=== PATIENT | male | born 1940 | race Caucasian/White ===

== ENCOUNTER 2016-03-23 09:55 | Outpatient (CLI) | payer BC, MEDICARE ==
[2016-03-23 11:27] LABS: ALT (SGPT) 16 U/L (0-55); AST (SGOT) 22 U/L (5-34); Alkaline Phosphatase 63 U/L (40-150); Anion Gap 14 mmol/L (10-20); BUN (Urea Nitrogen) 12 mg/dL (8.4-25.7); Bilirubin, Total 0.8 mg/dL (0.2-1.2); Calc. Creatinine Clearance 0 mL/min (70-130); Calcium 9.6 mg/dL (7.8-10.44); Carbon Dioxide 24 mmol/L (23-31); Chloride 102 mmol/L (98-107); Estimated GFR-MDRD 47; Globulin 3.7 g/dL (2.4-3.5); LDL Cholesterol, Calculated 78 mg/dL; Protein, Total 7.9 g/dL (5.8-8.1)
[2016-03-23 12:13] LABS: #Basophils 0.1 thou/uL (0.0-0.2); #Eosinphils 0.2 thou/uL (0.0-0.7); #Lymphocytes 1.8 thou/uL (1.20-3.40); #Monocytes 0.7 thou/uL (0.11-0.59); %Basophils 1.2 % (0.0-1.0); %Eosinophils 3.4 % (0.0-10.0); %Monocytes 12.4 % (0.0-10.0); Hematocrit 38.5 % (42.0-52.0); Mean Platelet Volume 4.6 fL (7.4-10.4); Red Blood Cell (RBC) Count 4.03 mill/uL (4.70-6.10); White Blood Cell (WBC) Count 5.7 thou/uL (4.8-10.8)
== END 2016-03-23 09:56 | disposition home or self-care (01) ==
LOC: HPCALD 09:55
PROVIDERS: ATTEND Family Medicine
DX: E78.00 Pure hypercholesterolemia, unspecified (principal); E87.6 Hypokalemia; R97.20 Elevated prostate specific antigen [PSA]
CPT/HCPCS: 36415; 80053; 80061; 84153; 85025

== ENCOUNTER 2016-08-23 09:07 | Outpatient (CLI) | payer BC, MEDICARE ==
[2016-08-23 11:25] LABS: #Basophils 0.1 thou/uL (0.0-0.2); #Eosinphils 0.2 thou/uL (0.0-0.7); #Lymphocytes 1.6 thou/uL (1.20-3.40); #Monocytes 0.7 thou/uL (0.11-0.59); #Neutrophils 3.4 thou/uL (1.40-6.50); %Basophils 1.8 % (0.0-1.0); %Eosinophils 3.1 % (0.0-10.0); %Lymphocytes 26.7 % (21.0-51.0); %Monocytes 11.3 % (0.0-10.0); %Neutrophils 57.2 % (42.0-75.0); Hemoglobin 13.1 g/dL (14.0-18.0); Mean Corpuscular HGB CONC 34.5 g/dL (32.0-36.0); Mean Corpuscular Hemoglobin 32.7 pg (27.0-31.0); Mean Corpuscular Volume 94.9 fl (80.0-94.0); Mean Platelet Volume 4.9 fL (7.4-10.4); Platelet Count 275 thou/uL (130-400); RBC Distribution Width 11.5 % (11.5-14.5)
[2016-08-23 11:36] LABS: ALT (SGPT) 20 U/L (8-55); AST (SGOT) 26 U/L (5-34); Albumin 4.2 g/dL (3.4-4.8); Alkaline Phosphatase 65 U/L (40-150); Anion Gap 14 mmol/L (10-20); BUN (Urea Nitrogen) 15 mg/dL (8.4-25.7); Bilirubin, Total 0.7 mg/dL (0.2-1.2); Calc. Creatinine Clearance 0 mL/min (70-130); Calcium 9.3 mg/dL (7.8-10.44); Carbon Dioxide 25 mmol/L (23-31); Cardiac Risk 3.2 (Less than 4.5); Chloride 104 mmol/L (98-107); Cholesterol 160 mg/dl (< 200 Desired); Estimated GFR-MDRD 41; Globulin 3.6 g/dL (2.4-3.5); Glucose 94 mg/dL (83-110); HDL Cholesterol 50 mg/dL (>60 Neg Risk); LDL Cholesterol, Calculated 87 mg/dL; Potassium 4.2 mmol/L (3.5-5.1); Protein, Total 7.8 g/dL (5.8-8.1); Sodium 139 mmol/L (136-145); Triglycerides 117 mg/dL (Less than 150)
== END 2016-08-23 09:08 | disposition home or self-care (01) ==
LOC: HPCALD 09:07
PROVIDERS: ATTEND Family Medicine
DX: E78.5 Hyperlipidemia, unspecified (principal); I10 Essential (primary) hypertension
CPT/HCPCS: 36415; 80053; 80061; 85025

== ENCOUNTER 2016-09-13 15:38 | Outpatient (CLI) | payer BC, MEDICARE ==
[2016-09-13 20:15] LABS: Folate (Folic Acid) 17.6 ng/mL (7.0-31.4)
== END 2016-09-13 15:39 | disposition home or self-care (01) ==
LOC: HPCALD 15:38
PROVIDERS: ATTEND Family Medicine
DX: D53.9 Nutritional anemia, unspecified (principal)
CPT/HCPCS: 36415; 82607; 82746

== ENCOUNTER 2021-02-26 16:12 | Observation (INO) | payer MEDICARE, OTHER ==
[2021-02-26 17:08] LABS: #Monocytes 0.2 thou/uL (0.11-0.59); #Neutrophils 2.8 thou/uL (1.40-6.50); %Basophils 0.3 % (0.0-1.0); %Eosinophils 0.1 % (0.0-10.0); %Lymphocytes 24.3 % (21.0-51.0); %Monocytes 5.5 % (0.0-10.0); %Neutrophils 69.9 % (42.0-75.0); Hemoglobin 10.8 g/dL (14.0-18.0); Mean Corpuscular HGB CONC 32.8 g/dL (32.0-36.0); Mean Corpuscular Hemoglobin 29.2 pg (27.0-31.0); Mean Platelet Volume 6.7 fL (7.4-10.4); Platelet Count 212 thou/uL (130-400); RBC Distribution Width 12.2 % (11.5-14.5)
[2021-02-26 17:10] LABS: ALT (SGPT) 119 U/L (8-55); AST (SGOT) 213 U/L (5-34); Albumin 3.4 g/dL (3.4-4.8); Alkaline Phosphatase 76 U/L (40-110); Anion Gap 15 mmol/L (10-20); BUN (Urea Nitrogen) 27 mg/dL (8.4-25.7); Bilirubin, Total 0.4 mg/dL (0.2-1.2); Calc. Creatinine Clearance 0 mL/min (70-130); Carbon Dioxide 23 mmol/L (23-31); Chloride 101 mmol/L (98-107); Globulin 3.4 g/dL (2.4-3.5); Glucose 102 mg/dL (83-110); Potassium 3.4 mmol/L (3.5-5.1); Protein, Total 6.8 g/dL (5.8-8.1); Sodium 136 mmol/L (136-145)
[2021-02-26] MEDS ORDERED: Dexamethasone 10 MG/ML VIAL ONE (20:15)
[2021-02-26 21:14] VITALS: BMI 19.8
[2021-02-26] MEDS ORDERED: Acetaminophen 325 MG TAB PO PRN (21:30)
[2021-02-26] MEDS ORDERED: Ondansetron PF 4 MG/2 ML Vial IVP PRN (21:30)
[2021-02-26] MEDS ORDERED: Ondansetron ODT 4 MG TAB SL PRN (21:30)
[2021-02-26] MEDS: Dextrose 5 %-0.45 % NaCl 1,000 ML IV SCH (22:30)
[2021-02-27] MEDS: Dextrose 5 %-0.45 % NaCl 1,000 ML IV SCH (04:49)
[2021-02-27 05:02] LABS: Hemoglobin 9.1 g/dL (14.0-18.0); Mean Corpuscular HGB CONC 34.2 g/dL (32.0-36.0); Mean Corpuscular Hemoglobin 29.6 pg (27.0-31.0); Mean Corpuscular Volume 86.7 fL (78.0-98.0); Mean Platelet Volume 6.1 fL (7.4-10.4); Platelet Count 186 thou/uL (130-400); RBC Distribution Width 11.9 % (11.5-14.5); Red Blood Cell (RBC) Count 3.09 mill/uL (4.70-6.10); White Blood Cell (WBC) Count 2.4 thou/uL (4.8-10.8)
[2021-02-27 05:16] LABS: ALT (SGPT) 122 U/L (8-55); AST (SGOT) 222 U/L (5-34); Albumin 2.8 g/dL (3.4-4.8); Alkaline Phosphatase 75 U/L (40-110); Anion Gap 12 mmol/L (10-20); BUN (Urea Nitrogen) 23 mg/dL (8.4-25.7); Bilirubin, Total 0.3 mg/dL (0.2-1.2); Calc. Creatinine Clearance 41 mL/min (70-130); Calcium 8.2 mg/dL (7.8-10.44); Carbon Dioxide 20 mmol/L (23-31); Chloride 104 mmol/L (98-107); Globulin 2.8 g/dL (2.4-3.5); Glucose 216 mg/dL (83-110); Potassium 3.3 mmol/L (3.5-5.1); Protein, Total 5.6 g/dL (5.8-8.1); Sodium 133 mmol/L (136-145)
[2021-02-27] MEDS ORDERED: Dexamethasone 4 mg/ml Vial SLOW IVP SCH (09:00)
[2021-02-27] MEDS ORDERED: Potassium Chloride 20 MEQ TAB PO SCH (11:15)
[2021-02-27 14:05] VITALS: BP 105/62; TEMP 98.3
[2021-02-27] MEDS ORDERED: Aspirin Chewable 81 MG TAB PO SCH (21:00)
[2021-02-27] MEDS ORDERED: Atorvastatin Calcium 10 MG TAB PO SCH (21:00)
[2021-02-28] MEDS ORDERED: Dexamethasone 4 MG TAB PO SCH (08:00)
[2021-02-28] MEDS ORDERED: Potassium Chloride 20 MEQ TAB PO SCH (09:00)
[2021-02-28] MEDS ORDERED: Losartan Potassium 50 MG TAB PO SCH (09:00)
[2021-02-28] MEDS ORDERED: Hydrochlorothiazide 25 MG TAB PO SCH (09:00)
[2021-02-28] MEDS ORDERED: Atenolol 50 MG TAB PO SCH (09:00)
== END 2021-02-27 13:30 | disposition home or self-care (01) ==
LOC: BURERS 16:12 → BURMED 18:40 → BURERS 20:25
PROVIDERS: ADMIT Family Medicine; ATTEND Family Medicine
DX: E86.0 Dehydration (principal); E87.6 Hypokalemia; D72.819 Decreased white blood cell count, unspecified; R79.89 Other specified abnormal findings of blood chemistry; U07.1 COVID-19; I10 Essential (primary) hypertension; E78.5 Hyperlipidemia, unspecified; D64.9 Anemia, unspecified; R63.0 Anorexia; Z68.1 Body mass index [BMI] 19.9 or less, adult; Z79.82 Long term (current) use of aspirin; Z79.899 Other long term (current) drug therapy
CPT/HCPCS: 36415; 71045; 80053; 84484; 85025; 85027; 93005; 96374; G0378; J1100; J7042

== ENCOUNTER 2021-03-06 11:39 | Inpatient (IN) | payer MEDICARE, OTHER ==
[2021-03-06 12:29] LABS: #Basophils 0.1 thou/uL (0.0-0.2); #Eosinphils 0.1 thou/uL (0.0-0.7); #Lymphocytes 1.4 thou/uL (1.20-3.40); #Monocytes 0.4 thou/uL (0.11-0.59); #Neutrophils 14.6 thou/uL (1.40-6.50); %Basophils 0.4 % (0.0-1.0); %Eosinophils 0.5 % (0.0-10.0); %Lymphocytes 8.4 % (21.0-51.0); %Monocytes 2.2 % (0.0-10.0); %Neutrophils 88.5 % (42.0-75.0); Hemoglobin 12.3 g/dL (14.0-18.0); Mean Corpuscular HGB CONC 33.9 g/dL (32.0-36.0); Mean Corpuscular Volume 88.5 fL (78.0-98.0); Mean Platelet Volume 6.1 fL (7.4-10.4); Platelet Count 632 thou/uL (130-400); RBC Distribution Width 12.2 % (11.5-14.5); White Blood Cell (WBC) Count 16.5 thou/uL (4.8-10.8)
[2021-03-06 12:38] LABS: ALT (SGPT) 77 U/L (8-55); AST (SGOT) 32 U/L (5-34); Albumin 3.6 g/dL (3.4-4.8); Alkaline Phosphatase 77 U/L (40-110); Anion Gap 24 mmol/L (10-20); BUN (Urea Nitrogen) 31 mg/dL (8.4-25.7); Bilirubin, Total 1.5 mg/dL (0.2-1.2); Calc. Creatinine Clearance 0 mL/min (70-130); Carbon Dioxide 16 mmol/L (23-31); Chloride 101 mmol/L (98-107); Globulin 4.1 g/dL (2.4-3.5); Glucose 118 mg/dL (83-110); Potassium 4.5 mmol/L (3.5-5.1); Protein, Total 7.7 g/dL (5.8-8.1); Sodium 136 mmol/L (136-145)
[2021-03-06] MEDS ORDERED: Sodium Chloride 0.9% 100 ML ONE (12:45)
[2021-03-06] MEDS ORDERED: cefTRIAXone\\ROCEPHIN 1 GM VIAL ONE (12:45)
[2021-03-06] MEDS ORDERED: Azithromycin 500 MG VIAL ONE (13:27)
[2021-03-06 15:33] LABS: Lactic Acid 3.2 mmol/L (0.5-2.2)
[2021-03-06] MEDS ORDERED: Acetaminophen 325 MG TAB PO PRN ×2 (15:45→16:09)
[2021-03-06] MEDS ORDERED: Ondansetron PF 4 MG/2 ML Vial IVP PRN (15:45)
[2021-03-06] MEDS ORDERED: Ondansetron ODT 4 MG TAB SL PRN ×2 (15:45→16:09)
[2021-03-06] MEDS: Sodium Chloride 0.9% 1,000 ML IV SCH (16:30)
[2021-03-06] MEDS: Aspirin Chewable 81 MG TAB PO SCH (20:45)
[2021-03-06] MEDS: Atorvastatin Calcium 10 MG TAB PO SCH (20:45)
[2021-03-07] MEDS: Sodium Chloride 0.9% 1,000 ML IV SCH ×4 (00:50→20:59)
[2021-03-07 05:54] LABS: Lactic Acid 0.9 mmol/L (0.5-2.2)
[2021-03-07 05:58] LABS: Anion Gap 13 mmol/L (10-20)
[2021-03-07 06:40] LABS: ALT (SGPT) 45 U/L (8-55); AST (SGOT) 20 U/L (5-34); Albumin 2.4 g/dL (3.4-4.8); Alkaline Phosphatase 60 U/L (40-110); BUN (Urea Nitrogen) 33 mg/dL (8.4-25.7); Bilirubin, Total 0.8 mg/dL (0.2-1.2); Calc. Creatinine Clearance 36 mL/min (70-130); Carbon Dioxide 17 mmol/L (23-31); Chloride 112 mmol/L (98-107); Globulin 2.6 g/dL (2.4-3.5); Glucose 73 mg/dL (83-110); Potassium 3.8 mmol/L (3.5-5.1); Sodium 138 mmol/L (136-145)
[2021-03-07 06:42] LABS: #Basophils 0.1 thou/uL (0.0-0.2); #Eosinphils 0.1 thou/uL (0.0-0.7); #Lymphocytes 0.7 thou/uL (1.20-3.40); #Monocytes 1.1 thou/uL (0.11-0.59); #Neutrophils 8.2 thou/uL (1.40-6.50); %Basophils 1.1 % (0.0-1.0); %Eosinophils 0.6 % (0.0-10.0); %Lymphocytes 6.8 % (21.0-51.0); %Monocytes 10.6 % (0.0-10.0); %Neutrophils 80.8 % (42.0-75.0); Hemoglobin 8.8 g/dL (14.0-18.0); Mean Corpuscular HGB CONC 34.1 g/dL (32.0-36.0); Mean Corpuscular Hemoglobin 30.1 pg (27.0-31.0); Mean Corpuscular Volume 88.2 fL (78.0-98.0); Mean Platelet Volume 5.8 fL (7.4-10.4); Platelet Count 380 thou/uL (130-400); RBC Distribution Width 12.1 % (11.5-14.5); Red Blood Cell (RBC) Count 2.91 mill/uL (4.70-6.10); White Blood Cell (WBC) Count 10.1 thou/uL (4.8-10.8)
[2021-03-07] MEDS ORDERED: Dexamethasone 4 MG TAB PO SCH (08:00)
[2021-03-07] MEDS: Megestrol Acetate 40 MG TAB PO SCH ×2 (09:20→20:50)
[2021-03-07] MEDS: Atenolol 50 MG TAB PO SCH (09:21)
[2021-03-07] MEDS: Losartan Potassium 50 MG TAB PO SCH (09:21)
[2021-03-07] MEDS: Potassium Chloride 20 MEQ TAB PO SCH (09:21)
[2021-03-07] MEDS: cefTRIAXone\\ROCEPHIN 1 GM in Sodium Chloride 0.9% 100 ML IVPB SCH (12:58)
[2021-03-07] MEDS: Atorvastatin Calcium 10 MG TAB PO SCH (20:50)
[2021-03-07] MEDS: Aspirin Chewable 81 MG TAB PO SCH (20:50)
[2021-03-08 03:00] VITALS: BMI 19.0
[2021-03-08 05:15] LABS: #Eosinphils 0.1 thou/uL (0.0-0.7); #Lymphocytes 0.6 thou/uL (1.20-3.40); #Monocytes 0.7 thou/uL (0.11-0.59); #Neutrophils 5.6 thou/uL (1.40-6.50); %Basophils 0.6 % (0.0-1.0); %Eosinophils 1.1 % (0.0-10.0); %Lymphocytes 9.1 % (21.0-51.0); %Monocytes 10.4 % (0.0-10.0); %Neutrophils 78.8 % (42.0-75.0); Hemoglobin 7.6 g/dL (14.0-18.0); Mean Corpuscular Hemoglobin 29.8 pg (27.0-31.0); Mean Corpuscular Volume 87.6 fL (78.0-98.0); Platelet Count 355 thou/uL (130-400); RBC Distribution Width 12.2 % (11.5-14.5); Red Blood Cell (RBC) Count 2.56 mill/uL (4.70-6.10); White Blood Cell (WBC) Count 7.1 thou/uL (4.8-10.8)
[2021-03-08 05:25] LABS: ALT (SGPT) 35 U/L (8-55); AST (SGOT) 19 U/L (5-34); Albumin 2.2 g/dL (3.4-4.8); Alkaline Phosphatase 49 U/L (40-110); Anion Gap 9 mmol/L (10-20); BUN (Urea Nitrogen) 23 mg/dL (8.4-25.7); Bilirubin, Total 0.8 mg/dL (0.2-1.2); Calc. Creatinine Clearance 49 mL/min (70-130); Calcium 7.9 mg/dL (7.8-10.44); Carbon Dioxide 16 mmol/L (23-31); Chloride 114 mmol/L (98-107); Globulin 2.4 g/dL (2.4-3.5); Glucose 85 mg/dL (83-110); Potassium 3.4 mmol/L (3.5-5.1); Protein, Total 4.6 g/dL (5.8-8.1); Sodium 136 mmol/L (136-145)
[2021-03-08] MEDS: Losartan Potassium 50 MG TAB PO SCH (09:01)
[2021-03-08] MEDS: Ferrous Gluconate 324 MG TAB PO SCH (09:01)
[2021-03-08] MEDS: Potassium Chloride 20 MEQ TAB PO SCH (09:02)
[2021-03-08] MEDS: Atenolol 50 MG TAB PO SCH (09:02)
[2021-03-08] MEDS: Megestrol Acetate 40 MG TAB PO SCH ×2 (09:02→20:52)
[2021-03-08] MEDS: cefTRIAXone\\ROCEPHIN 1 GM in Sodium Chloride 0.9% 100 ML IVPB SCH (13:07)
[2021-03-08] MEDS: Atorvastatin Calcium 10 MG TAB PO SCH (20:52)
[2021-03-08] MEDS: Aspirin Chewable 81 MG TAB PO SCH (20:52)
[2021-03-09 05:26] LABS: #Eosinphils 0.1 thou/uL (0.0-0.7); #Lymphocytes 0.7 thou/uL (1.20-3.40); #Monocytes 0.6 thou/uL (0.11-0.59); #Neutrophils 6.7 thou/uL (1.40-6.50); %Basophils 0.4 % (0.0-1.0); %Lymphocytes 8.8 % (21.0-51.0); %Monocytes 7.2 % (0.0-10.0); %Neutrophils 82.7 % (42.0-75.0); Hemoglobin 8.3 g/dL (14.0-18.0); Mean Corpuscular HGB CONC 34.1 g/dL (32.0-36.0); Mean Corpuscular Hemoglobin 29.5 pg (27.0-31.0); Mean Corpuscular Volume 86.5 fL (78.0-98.0); Mean Platelet Volume 5.7 fL (7.4-10.4); Platelet Count 386 thou/uL (130-400); RBC Distribution Width 11.8 % (11.5-14.5); Red Blood Cell (RBC) Count 2.81 mill/uL (4.70-6.10)
[2021-03-09 05:39] LABS: Anion Gap 13 mmol/L (10-20); BUN (Urea Nitrogen) 17 mg/dL (8.4-25.7); Calc. Creatinine Clearance 55 mL/min (70-130); Calcium 8.7 mg/dL (7.8-10.44); Carbon Dioxide 15 mmol/L (23-31); Chloride 110 mmol/L (98-107); Glucose 79 mg/dL (83-110); Potassium 3.4 mmol/L (3.5-5.1); Sodium 135 mmol/L (136-145)
[2021-03-09] MEDS: Megestrol Acetate 40 MG TAB PO SCH (09:32)
[2021-03-09] MEDS: Atenolol 50 MG TAB PO SCH (09:32)
[2021-03-09] MEDS: Losartan Potassium 50 MG TAB PO SCH (09:32)
[2021-03-09] MEDS: Potassium Chloride 20 MEQ TAB PO SCH (09:32)
[2021-03-09] MEDS: Ferrous Gluconate 324 MG TAB PO SCH (09:32)
[2021-03-09] MEDS: cefTRIAXone\\ROCEPHIN 1 GM in Sodium Chloride 0.9% 100 ML IVPB SCH (14:07)
[2021-03-09] MEDS ORDERED: FLU VACC QS2021-22(65YR UP)/PF 240 MCG/0.7 ML SYRINGE IM ONE (16:00)
[2021-03-09 19:05] VITALS: BP 138/77; TEMP 99.9
== END 2021-03-09 19:19 | disposition swing bed (61) | DRG 641 ==
LOC: BURERS 11:39 → BURMED 13:50
PROVIDERS: ADMIT Family Medicine; ATTEND Family Medicine
DX: E86.0 Dehydration (principal); Z68.1 Body mass index [BMI] 19.9 or less, adult; E44.0 Moderate protein-calorie malnutrition; I10 Essential (primary) hypertension; E87.2 Acidosis; E78.5 Hyperlipidemia, unspecified; R68.0 Hypothermia, not associated with low environmental temperature; U09.9 Post COVID-19 condition, unspecified; N28.9 Disorder of kidney and ureter, unspecified
CPT/HCPCS: 36415; 71045; 80048; 80053; 83605; 85025; 86140; 93005; 96365; 96367; J0456; J0696; J3490; J7050; S0179

== ENCOUNTER 2021-03-09 19:00 | Inpatient (IN) | payer MEDICARE, OTHER ==
[2021-03-09] MEDS ORDERED: Ondansetron PF 4 MG/2 ML Vial IVP PRN (19:48)
[2021-03-09] MEDS ORDERED: Ondansetron ODT 4 MG TAB SL PRN (19:50)
[2021-03-09 20:14] VITALS: BMI 19.0
[2021-03-09] MEDS: Atorvastatin Calcium 10 MG TAB PO SCH (21:31)
[2021-03-09] MEDS: Megestrol Acetate 40 MG TAB PO SCH (21:31)
[2021-03-09] MEDS: Aspirin Chewable 81 MG TAB PO SCH (21:31)
[2021-03-10] MEDS ORDERED: Potassium Chloride 20 MEQ TAB PO SCH (09:00)
[2021-03-10] MEDS: Atenolol 50 MG TAB PO SCH (10:46)
[2021-03-10] MEDS: Losartan Potassium 50 MG TAB PO SCH (10:46)
[2021-03-10] MEDS: Megestrol Acetate 40 MG TAB PO SCH ×2 (10:47→21:08)
[2021-03-10] MEDS ORDERED: Ferrous Gluconate 324 MG TAB ONE (10:51)
[2021-03-10] MEDS: Ferrous Gluconate 324 MG TAB PO SCH (10:55)
[2021-03-10 12:25] LABS: #Basophils 0.1 thou/uL (0.0-0.2); #Lymphocytes 0.9 thou/uL (1.20-3.40); #Neutrophils 14.1 thou/uL (1.40-6.50); %Basophils 0.4 % (0.0-1.0); %Eosinophils 0.1 % (0.0-10.0); %Lymphocytes 5.3 % (21.0-51.0); %Monocytes 6.1 % (0.0-10.0); %Neutrophils 88.2 % (42.0-75.0); Hemoglobin 9.8 g/dL (14.0-18.0); Mean Corpuscular HGB CONC 35.4 g/dL (32.0-36.0); Mean Corpuscular Hemoglobin 31.4 pg (27.0-31.0); Mean Corpuscular Volume 88.6 fL (78.0-98.0); Mean Platelet Volume 5.5 fL (7.4-10.4); Platelet Count 506 thou/uL (130-400); Red Blood Cell (RBC) Count 3.13 mill/uL (4.70-6.10)
[2021-03-10 13:01] LABS: ALT (SGPT) 36 U/L (8-55); AST (SGOT) 29 U/L (5-34); Albumin 2.8 g/dL (3.4-4.8); Alkaline Phosphatase 68 U/L (40-110); Anion Gap 13 mmol/L (10-20); BUN (Urea Nitrogen) 16 mg/dL (8.4-25.7); Bilirubin, Total 1.3 mg/dL (0.2-1.2); Calc. Creatinine Clearance 47 mL/min (70-130); Calcium 9.8 mg/dL (7.8-10.44); Chloride 107 mmol/L (98-107); Globulin 3.5 g/dL (2.4-3.5); Glucose 129 mg/dL (83-110); Potassium 3.6 mmol/L (3.5-5.1); Protein, Total 6.3 g/dL (5.8-8.1); Sodium 135 mmol/L (136-145)
[2021-03-10 13:12] LABS: Carbon Dioxide 16 mmol/L (23-31)
[2021-03-10] MEDS: cefTRIAXone\\ROCEPHIN 1 GM in Sodium Chloride 0.9% 100 ML IVPB SCH (13:30)
[2021-03-10] MEDS: Sodium Chloride 0.9% 1,000 ML IV SCH (14:49)
[2021-03-10 20:54] LABS: Bilirubin Negative (Negative); Blood, Urine Negative (Negative); Clarity Clear (Clear); Glucose, Urine (Dipstick) Negative (Negative); Ketone, Urine 15 mg/dL (Negative); Leukocyte Negative (Negative); Nitrite Negative (Negative); Protein, Urine (Dipstick) 30 mg/dL (Neg-Trace); pH, Urine 5.5 (5.0-9.0)
[2021-03-10 20:59] LABS: Urine Culture Reflex No No
[2021-03-10] MEDS: Atorvastatin Calcium 10 MG TAB PO SCH (21:08)
[2021-03-10] MEDS: Aspirin Chewable 81 MG TAB PO SCH (21:08)
[2021-03-10 21:24] LABS: RBC/HPF 0-3 HPF (0-3); Squamous Epithelial 0-3 HPF (0-3); WBC/HPF None Seen HPF (0-3); Yeast-Budding Rare HPF (None Seen)
[2021-03-11] MEDS: Sodium Chloride 0.9% 1,000 ML IV SCH ×2 (04:57→20:59)
[2021-03-11 06:05] LABS: #Eosinphils 0.1 thou/uL (0.0-0.7); #Lymphocytes 0.5 thou/uL (1.20-3.40); #Monocytes 0.7 thou/uL (0.11-0.59); %Basophils 0.3 % (0.0-1.0); %Eosinophils 0.6 % (0.0-10.0); %Lymphocytes 4.9 % (21.0-51.0); %Monocytes 6.6 % (0.0-10.0); %Neutrophils 87.6 % (42.0-75.0); Hemoglobin 7.9 g/dL (14.0-18.0); Mean Corpuscular HGB CONC 33.9 g/dL (32.0-36.0); Mean Corpuscular Hemoglobin 29.3 pg (27.0-31.0); Mean Corpuscular Volume 86.4 fL (78.0-98.0); Mean Platelet Volume 5.3 fL (7.4-10.4); Platelet Count 357 thou/uL (130-400); Red Blood Cell (RBC) Count 2.69 mill/uL (4.70-6.10); White Blood Cell (WBC) Count 10.3 thou/uL (4.8-10.8)
[2021-03-11 06:14] LABS: ALT (SGPT) 24 U/L (8-55); AST (SGOT) 25 U/L (5-34); Albumin 2.3 g/dL (3.4-4.8); Alkaline Phosphatase 54 U/L (40-110); Anion Gap 13 mmol/L (10-20); BUN (Urea Nitrogen) 17 mg/dL (8.4-25.7); Bilirubin, Total 0.9 mg/dL (0.2-1.2); Calc. Creatinine Clearance 57 mL/min (70-130); Calcium 9.3 mg/dL (7.8-10.44); Carbon Dioxide 16 mmol/L (23-31); Chloride 110 mmol/L (98-107); Globulin 2.8 g/dL (2.4-3.5); Glucose 102 mg/dL (83-110); Potassium 3.3 mmol/L (3.5-5.1); Protein, Total 5.1 g/dL (5.8-8.1); Sodium 136 mmol/L (136-145)
[2021-03-11] MEDS: Potassium Chloride 20 MEQ TAB PO SCH (09:51)
[2021-03-11] MEDS: Atenolol 50 MG TAB PO SCH (09:51)
[2021-03-11] MEDS: Losartan Potassium 50 MG TAB PO SCH (09:51)
[2021-03-11] MEDS: Megestrol Acetate 40 MG TAB PO SCH ×2 (09:51→20:58)
[2021-03-11] MEDS: Ferrous Gluconate 324 MG TAB PO SCH (09:52)
[2021-03-11] MEDS: Docusate 100 MG CAP PO SCH (09:52)
[2021-03-11] MEDS: cefTRIAXone\\ROCEPHIN 1 GM in Sodium Chloride 0.9% 100 ML IVPB SCH (13:06)
[2021-03-11] MEDS: Atorvastatin Calcium 10 MG TAB PO SCH (20:58)
[2021-03-11] MEDS: Aspirin Chewable 81 MG TAB PO SCH (20:58)
[2021-03-12 06:17] LABS: Anion Gap 12 mmol/L (10-20); BUN (Urea Nitrogen) 18 mg/dL (8.4-25.7); Calc. Creatinine Clearance 55 mL/min (70-130); Calcium 9.1 mg/dL (7.8-10.44); Carbon Dioxide 17 mmol/L (23-31); Chloride 113 mmol/L (98-107); Glucose 91 mg/dL (83-110); Potassium 3.8 mmol/L (3.5-5.1); Sodium 138 mmol/L (136-145)
[2021-03-12 06:19] LABS: #Eosinphils 0.1 thou/uL (0.0-0.7); Hemoglobin 7.4 g/dL (14.0-18.0); Platelet Count 338 thou/uL (130-400)
[2021-03-12 07:39] LABS: Red Blood Cell (RBC) Count 2.52 mill/uL (4.70-6.10); White Blood Cell (WBC) Count 9.3 thou/uL (4.8-10.8)
[2021-03-12 07:41] LABS: Mean Corpuscular Volume 87.6 fL (78.0-98.0)
[2021-03-12 07:43] LABS: Mean Corpuscular Hemoglobin 29.3 pg (27.0-31.0)
[2021-03-12 07:49] LABS: Mean Corpuscular HGB CONC 33.5 g/dL (32.0-36.0); Mean Platelet Volume 5.1 fL (7.4-10.4); RBC Distribution Width 12.4 % (11.5-14.5)
[2021-03-12] MEDS: Sodium Chloride 0.9% 1,000 ML IV SCH (07:49)
[2021-03-12 07:50] LABS: %Lymphocytes 9.1 % (21.0-51.0); %Neutrophils 84.7 % (42.0-75.0)
[2021-03-12 07:51] LABS: #Neutrophils 7.9 thou/uL (1.40-6.50); %Eosinophils 1.2 % (0.0-10.0); %Monocytes 4.3 % (0.0-10.0)
[2021-03-12 07:52] LABS: #Lymphocytes 0.8 thou/uL (1.20-3.40)
[2021-03-12 07:53] LABS: #Basophils 0.1 thou/uL (0.0-0.2); #Monocytes 0.4 thou/uL (0.11-0.59)
[2021-03-12 07:54] LABS: %Basophils 0.7 % (0.0-1.0)
[2021-03-12] MEDS ORDERED: FLU VACC QS2021-22(65YR UP)/PF 240 MCG/0.7 ML SYRINGE IM ONE (09:00)
[2021-03-12] MEDS: Ferrous Gluconate 324 MG TAB PO SCH (10:17)
[2021-03-12] MEDS: Atenolol 50 MG TAB PO SCH (10:17)
[2021-03-12] MEDS: Megestrol Acetate 40 MG TAB PO SCH ×2 (10:19→22:00)
[2021-03-12] MEDS: Potassium Chloride 20 MEQ TAB PO SCH (10:19)
[2021-03-12] MEDS: Docusate 100 MG CAP PO SCH (10:19)
[2021-03-12] MEDS: Losartan Potassium 50 MG TAB PO SCH (10:19)
[2021-03-12] MEDS: cefTRIAXone\\ROCEPHIN 1 GM in Sodium Chloride 0.9% 100 ML IVPB SCH (13:55)
[2021-03-12] MEDS: Atorvastatin Calcium 10 MG TAB PO SCH (22:00)
[2021-03-12] MEDS: Aspirin Chewable 81 MG TAB PO SCH (22:00)
[2021-03-13] MEDS: Atenolol 50 MG TAB PO SCH (10:01)
[2021-03-13] MEDS: Ferrous Gluconate 324 MG TAB PO SCH (10:02)
[2021-03-13] MEDS: Docusate 100 MG CAP PO SCH (10:02)
[2021-03-13] MEDS: Potassium Chloride 20 MEQ TAB PO SCH (10:02)
[2021-03-13] MEDS: Losartan Potassium 50 MG TAB PO SCH (10:02)
[2021-03-13] MEDS: Megestrol Acetate 40 MG TAB PO SCH ×2 (10:05→21:06)
[2021-03-13] MEDS: cefTRIAXone\\ROCEPHIN 1 GM in Sodium Chloride 0.9% 100 ML IVPB SCH (14:37)
[2021-03-13] MEDS: Aspirin Chewable 81 MG TAB PO SCH (21:06)
[2021-03-13] MEDS: Atorvastatin Calcium 10 MG TAB PO SCH (21:06)
[2021-03-14] MEDS: Megestrol Acetate 40 MG TAB PO SCH ×2 (09:29→21:15)
[2021-03-14] MEDS: Docusate 100 MG CAP PO SCH (09:30)
[2021-03-14] MEDS: Atenolol 50 MG TAB PO SCH (09:30)
[2021-03-14] MEDS: Ferrous Gluconate 324 MG TAB PO SCH (09:30)
[2021-03-14] MEDS: Losartan Potassium 50 MG TAB PO SCH (09:31)
[2021-03-14] MEDS: Potassium Chloride 20 MEQ TAB PO SCH (09:31)
[2021-03-14] MEDS: cefTRIAXone\\ROCEPHIN 1 GM in Sodium Chloride 0.9% 100 ML IVPB SCH (12:55)
[2021-03-14] MEDS: Aspirin Chewable 81 MG TAB PO SCH (21:15)
[2021-03-14] MEDS: Atorvastatin Calcium 10 MG TAB PO SCH (21:15)
[2021-03-15 05:29] LABS: #Basophils 0.1 thou/uL (0.0-0.2); #Eosinphils 0.1 thou/uL (0.0-0.7); #Lymphocytes 0.5 thou/uL (1.20-3.40); #Monocytes 0.4 thou/uL (0.11-0.59); #Neutrophils 6.9 thou/uL (1.40-6.50); %Basophils 0.9 % (0.0-1.0); %Lymphocytes 6.8 % (21.0-51.0); %Monocytes 5.1 % (0.0-10.0); %Neutrophils 86.2 % (42.0-75.0); Hemoglobin 7.8 g/dL (14.0-18.0); Mean Corpuscular HGB CONC 35.7 g/dL (32.0-36.0); Mean Corpuscular Hemoglobin 31.2 pg (27.0-31.0); Mean Corpuscular Volume 87.6 fL (78.0-98.0); Mean Platelet Volume 5.8 fL (7.4-10.4); Platelet Count 227 thou/uL (130-400); RBC Distribution Width 13.7 % (11.5-14.5)
[2021-03-15 05:39] LABS: Anion Gap 13 mmol/L (10-20); BUN (Urea Nitrogen) 20 mg/dL (8.4-25.7); Calc. Creatinine Clearance 54 mL/min (70-130); Calcium 9.6 mg/dL (7.8-10.44); Carbon Dioxide 19 mmol/L (23-31); Chloride 110 mmol/L (98-107); Glucose 105 mg/dL (83-110); Potassium 3.5 mmol/L (3.5-5.1); Sodium 138 mmol/L (136-145)
[2021-03-15] MEDS: Megestrol Acetate 40 MG TAB PO SCH ×2 (08:25→21:06)
[2021-03-15] MEDS: Ferrous Gluconate 324 MG TAB PO SCH (08:25)
[2021-03-15] MEDS: Losartan Potassium 50 MG TAB PO SCH (08:26)
[2021-03-15] MEDS: Atenolol 50 MG TAB PO SCH (08:26)
[2021-03-15] MEDS: Docusate 100 MG CAP PO SCH (08:26)
[2021-03-15] MEDS: Potassium Chloride 20 MEQ TAB PO SCH (08:26)
[2021-03-15] MEDS: Acetaminophen 325 MG TAB PO PRN (08:28)
[2021-03-15] MEDS: Nystatin 500,000 UNITS/5 ML UDCUP SSW SCH ×4 (08:37→21:05)
[2021-03-15] MEDS ORDERED: predniSONE 20 MG TAB PO SCH (12:00)
[2021-03-15] MEDS: cefTRIAXone\\ROCEPHIN 1 GM in Sodium Chloride 0.9% 100 ML IVPB SCH (12:43)
[2021-03-15] MEDS ORDERED: Hydrocortisone Acetate 25 MG Suppository PR PRN (15:43)
[2021-03-15] MEDS: Mometasone/Formoterol 200/5 60 PUFF INH SCH (17:59)
[2021-03-15] MEDS: Atorvastatin Calcium 10 MG TAB PO SCH (21:06)
[2021-03-15] MEDS: Aspirin Chewable 81 MG TAB PO SCH (21:06)
[2021-03-16] MEDS: Mometasone/Formoterol 200/5 60 PUFF INH SCH ×2 (05:28→21:10)
[2021-03-16] MEDS: Enoxaparin Sodium 30 MG/0.3 ML SYRINGE SC SCH (09:04)
[2021-03-16] MEDS: Dexamethasone 4 MG TAB PO SCH (09:05)
[2021-03-16] MEDS: Potassium Chloride 20 MEQ TAB PO SCH (09:05)
[2021-03-16] MEDS: Losartan Potassium 50 MG TAB PO SCH (09:05)
[2021-03-16] MEDS: Ferrous Gluconate 324 MG TAB PO SCH (09:08)
[2021-03-16] MEDS: Megestrol Acetate 40 MG TAB PO SCH ×2 (09:08→21:09)
[2021-03-16] MEDS: Atenolol 50 MG TAB PO SCH ×2 (09:09→11:04)
[2021-03-16] MEDS: Docusate 100 MG CAP PO SCH (09:09)
[2021-03-16] MEDS: Nystatin 500,000 UNITS/5 ML UDCUP SSW SCH ×4 (09:09→21:09)
[2021-03-16] MEDS: Acetaminophen 325 MG TAB PO PRN (09:10)
[2021-03-16] MEDS ORDERED: predniSONE 20 MG TAB PO SCH (12:00)
[2021-03-16] MEDS: cefTRIAXone\\ROCEPHIN 1 GM in Sodium Chloride 0.9% 100 ML IVPB SCH (12:57)
[2021-03-16] MEDS: Aspirin Chewable 81 MG TAB PO SCH (21:09)
[2021-03-16] MEDS: Atorvastatin Calcium 10 MG TAB PO SCH (21:09)
[2021-03-17 05:34] LABS: ALT (SGPT) 43 U/L (8-55); AST (SGOT) 67 U/L (5-34); Albumin 2.1 g/dL (3.4-4.8); Alkaline Phosphatase 60 U/L (40-110); Anion Gap 12 mmol/L (10-20); BUN (Urea Nitrogen) 22 mg/dL (8.4-25.7); Bilirubin, Total 0.3 mg/dL (0.2-1.2); Calc. Creatinine Clearance 53 mL/min (70-130); Calcium 9.6 mg/dL (7.8-10.44); Carbon Dioxide 19 mmol/L (23-31); Chloride 111 mmol/L (98-107); Glucose 107 mg/dL (83-110); Protein, Total 5.1 g/dL (5.8-8.1); Sodium 138 mmol/L (136-145)
[2021-03-17 05:39] LABS: #Lymphocytes 0.6 thou/uL (1.20-3.40); #Monocytes 0.5 thou/uL (0.11-0.59); #Neutrophils 6.2 thou/uL (1.40-6.50); %Basophils 0.5 % (0.0-1.0); %Eosinophils 0.2 % (0.0-10.0); %Lymphocytes 7.8 % (21.0-51.0); %Monocytes 7.1 % (0.0-10.0); %Neutrophils 84.4 % (42.0-75.0); Hemoglobin 7.1 g/dL (14.0-18.0); Mean Corpuscular HGB CONC 36.1 g/dL (32.0-36.0); Mean Corpuscular Hemoglobin 31.9 pg (27.0-31.0); Mean Corpuscular Volume 88.5 fL (78.0-98.0); Mean Platelet Volume 6.4 fL (7.4-10.4); Platelet Count 226 thou/uL (130-400); RBC Distribution Width 13.8 % (11.5-14.5); Red Blood Cell (RBC) Count 2.24 mill/uL (4.70-6.10); White Blood Cell (WBC) Count 7.4 thou/uL (4.8-10.8)
[2021-03-17] MEDS: Dexamethasone 4 MG TAB PO SCH (09:37)
[2021-03-17] MEDS: Atenolol 50 MG TAB PO SCH (09:38)
[2021-03-17] MEDS: Docusate 100 MG CAP PO SCH (09:39)
[2021-03-17] MEDS: Cyanocobalamin (Vitamin B-12) 1,000 MCG TAB PO SCH (09:39)
[2021-03-17] MEDS: Ferrous Gluconate 324 MG TAB PO SCH ×2 (09:40→21:40)
[2021-03-17] MEDS: Enoxaparin Sodium 30 MG/0.3 ML SYRINGE SC SCH (09:40)
[2021-03-17] MEDS: Potassium Chloride 20 MEQ TAB PO SCH (09:41)
[2021-03-17] MEDS: Folic Acid 1 MG TAB PO SCH (09:42)
[2021-03-17] MEDS: Nystatin 500,000 UNITS/5 ML UDCUP SSW SCH ×4 (09:42→21:39)
[2021-03-17] MEDS: Megestrol Acetate 40 MG TAB PO SCH ×2 (09:42→21:39)
[2021-03-17] MEDS: Losartan Potassium 50 MG TAB PO SCH (09:42)
[2021-03-17] MEDS: Mometasone/Formoterol 200/5 60 PUFF INH SCH ×2 (09:44→21:40)
[2021-03-17] MEDS ORDERED: cefTRIAXone\\ROCEPHIN 1 GM in Sodium Chloride 0.9% 100 ML IVPB SCH (13:00)
[2021-03-17] MEDS: Aspirin Chewable 81 MG TAB PO SCH (21:39)
[2021-03-17] MEDS: Atorvastatin Calcium 10 MG TAB PO SCH (21:40)
[2021-03-18] MEDS: Mometasone/Formoterol 200/5 60 PUFF INH SCH ×2 (09:10→20:56)
[2021-03-18] MEDS: Nystatin 500,000 UNITS/5 ML UDCUP SSW SCH ×4 (09:13→20:55)
[2021-03-18] MEDS: Dexamethasone 4 MG TAB PO SCH (09:13)
[2021-03-18] MEDS: Enoxaparin Sodium 30 MG/0.3 ML SYRINGE SC SCH (09:13)
[2021-03-18] MEDS: Ferrous Gluconate 324 MG TAB PO SCH ×2 (09:13→20:55)
[2021-03-18] MEDS: Atenolol 50 MG TAB PO SCH (09:15)
[2021-03-18] MEDS: Docusate 100 MG CAP PO SCH (09:16)
[2021-03-18] MEDS: Megestrol Acetate 40 MG TAB PO SCH ×2 (09:16→20:55)
[2021-03-18] MEDS: Losartan Potassium 50 MG TAB PO SCH (09:16)
[2021-03-18] MEDS: Cyanocobalamin (Vitamin B-12) 1,000 MCG TAB PO SCH (09:16)
[2021-03-18] MEDS: Folic Acid 1 MG TAB PO SCH (09:16)
[2021-03-18] MEDS: Potassium Chloride 20 MEQ TAB PO SCH (09:17)
[2021-03-18] MEDS: Atorvastatin Calcium 10 MG TAB PO SCH (20:55)
[2021-03-18] MEDS: Aspirin Chewable 81 MG TAB PO SCH (20:56)
[2021-03-19 05:29] LABS: #Basophils 0.1 thou/uL (0.0-0.2); #Eosinphils 0.1 thou/uL (0.0-0.7); #Monocytes 0.9 thou/uL (0.11-0.59); #Neutrophils 5.6 thou/uL (1.40-6.50); %Basophils 0.7 % (0.0-1.0); %Eosinophils 0.8 % (0.0-10.0); %Lymphocytes 13.3 % (21.0-51.0); %Monocytes 11.5 % (0.0-10.0); %Neutrophils 73.8 % (42.0-75.0); Hemoglobin 8.1 g/dL (14.0-18.0); Mean Corpuscular HGB CONC 34.8 g/dL (32.0-36.0); Platelet Count 317 thou/uL (130-400); RBC Distribution Width 14.6 % (11.5-14.5); White Blood Cell (WBC) Count 7.6 thou/uL (4.8-10.8)
[2021-03-19 05:34] LABS: ALT (SGPT) 38 U/L (8-55); AST (SGOT) 51 U/L (5-34); Albumin 2.3 g/dL (3.4-4.8); Alkaline Phosphatase 59 U/L (40-110); Anion Gap 11 mmol/L (10-20); BUN (Urea Nitrogen) 20 mg/dL (8.4-25.7); Bilirubin, Total Less than 0.2 mg/dL (0.2-1.2); Calc. Creatinine Clearance 57 mL/min (70-130); Calcium 9.5 mg/dL (7.8-10.44); Carbon Dioxide 22 mmol/L (23-31); Chloride 106 mmol/L (98-107); Glucose 97 mg/dL (83-110); Potassium 4.4 mmol/L (3.5-5.1); Protein, Total 5.3 g/dL (5.8-8.1); Sodium 135 mmol/L (136-145)
[2021-03-19] MEDS: Enoxaparin Sodium 30 MG/0.3 ML SYRINGE SC SCH (09:34)
[2021-03-19] MEDS: Ferrous Gluconate 324 MG TAB PO SCH ×2 (09:34→21:03)
[2021-03-19] MEDS: Nystatin 500,000 UNITS/5 ML UDCUP SSW SCH ×4 (09:34→21:03)
[2021-03-19] MEDS: Dexamethasone 4 MG TAB PO SCH (09:35)
[2021-03-19] MEDS: Docusate 100 MG CAP PO SCH (09:37)
[2021-03-19] MEDS: Folic Acid 1 MG TAB PO SCH (09:38)
[2021-03-19] MEDS: Megestrol Acetate 40 MG TAB PO SCH ×2 (09:38→21:04)
[2021-03-19] MEDS: Cyanocobalamin (Vitamin B-12) 1,000 MCG TAB PO SCH (09:38)
[2021-03-19] MEDS: Potassium Chloride 20 MEQ TAB PO SCH (09:38)
[2021-03-19] MEDS: Losartan 25 MG TAB PO SCH (09:38)
[2021-03-19] MEDS: Atenolol 50 MG TAB PO SCH (09:39)
[2021-03-19] MEDS: Mometasone/Formoterol 200/5 60 PUFF INH SCH ×2 (09:40→21:05)
[2021-03-19] MEDS: Atorvastatin Calcium 10 MG TAB PO SCH (21:03)
[2021-03-19] MEDS: Aspirin Chewable 81 MG TAB PO SCH (21:03)
[2021-03-20] MEDS: Nystatin 500,000 UNITS/5 ML UDCUP SSW SCH ×4 (09:21→21:03)
[2021-03-20] MEDS: Dexamethasone 4 MG TAB PO SCH (09:22)
[2021-03-20] MEDS: Losartan 25 MG TAB PO SCH (09:23)
[2021-03-20] MEDS: Megestrol Acetate 40 MG TAB PO SCH ×2 (09:23→21:04)
[2021-03-20] MEDS: Atenolol 50 MG TAB PO SCH (09:23)
[2021-03-20] MEDS: Folic Acid 1 MG TAB PO SCH (09:23)
[2021-03-20] MEDS: Cyanocobalamin (Vitamin B-12) 1,000 MCG TAB PO SCH (09:26)
[2021-03-20] MEDS: Potassium Chloride 20 MEQ TAB PO SCH (09:26)
[2021-03-20] MEDS: Docusate 100 MG CAP PO SCH (09:27)
[2021-03-20] MEDS: Enoxaparin Sodium 30 MG/0.3 ML SYRINGE SC SCH (09:27)
[2021-03-20] MEDS: Ferrous Gluconate 324 MG TAB PO SCH ×2 (09:27→21:04)
[2021-03-20] MEDS: Mometasone/Formoterol 200/5 60 PUFF INH SCH ×2 (09:28→21:04)
[2021-03-20] MEDS: Atorvastatin Calcium 10 MG TAB PO SCH (21:04)
[2021-03-20] MEDS: Aspirin Chewable 81 MG TAB PO SCH (21:04)
[2021-03-21] MEDS: Mometasone/Formoterol 200/5 60 PUFF INH SCH ×2 (09:05→21:13)
[2021-03-21] MEDS: Atenolol 50 MG TAB PO SCH (09:07)
[2021-03-21] MEDS: Enoxaparin Sodium 30 MG/0.3 ML SYRINGE SC SCH (09:07)
[2021-03-21] MEDS: Nystatin 500,000 UNITS/5 ML UDCUP SSW SCH ×4 (09:08→21:13)
[2021-03-21] MEDS: Potassium Chloride 20 MEQ TAB PO SCH (09:08)
[2021-03-21] MEDS: Cyanocobalamin (Vitamin B-12) 1,000 MCG TAB PO SCH (09:09)
[2021-03-21] MEDS: Ferrous Gluconate 324 MG TAB PO SCH ×2 (09:09→21:13)
[2021-03-21] MEDS: Dexamethasone 4 MG TAB PO SCH (09:09)
[2021-03-21] MEDS: Megestrol Acetate 40 MG TAB PO SCH ×2 (09:09→21:13)
[2021-03-21] MEDS: Docusate 100 MG CAP PO SCH (09:09)
[2021-03-21] MEDS: Losartan 25 MG TAB PO SCH (09:10)
[2021-03-21] MEDS: Folic Acid 1 MG TAB PO SCH (09:10)
[2021-03-21] MEDS: Aspirin Chewable 81 MG TAB PO SCH (21:13)
[2021-03-22] MEDS: Atorvastatin Calcium 10 MG TAB PO SCH ×2 (01:46→22:05)
[2021-03-22] MEDS: Potassium Chloride 20 MEQ TAB PO SCH (08:43)
[2021-03-22] MEDS: Dexamethasone 4 MG TAB PO SCH (08:43)
[2021-03-22] MEDS: Megestrol Acetate 40 MG TAB PO SCH ×2 (08:44→22:05)
[2021-03-22] MEDS: Folic Acid 1 MG TAB PO SCH (08:44)
[2021-03-22] MEDS: Nystatin 500,000 UNITS/5 ML UDCUP SSW SCH (08:44)
[2021-03-22] MEDS: Losartan 25 MG TAB PO SCH (08:44)
[2021-03-22] MEDS: Cyanocobalamin (Vitamin B-12) 1,000 MCG TAB PO SCH (08:45)
[2021-03-22] MEDS: Atenolol 50 MG TAB PO SCH (08:45)
[2021-03-22] MEDS: Ferrous Gluconate 324 MG TAB PO SCH ×2 (08:45→22:05)
[2021-03-22] MEDS: Docusate 100 MG CAP PO SCH (08:45)
[2021-03-22] MEDS: Enoxaparin Sodium 30 MG/0.3 ML SYRINGE SC SCH (08:46)
[2021-03-22] MEDS: Mometasone/Formoterol 200/5 60 PUFF INH SCH ×2 (08:46→22:04)
[2021-03-22] MEDS: Aspirin Chewable 81 MG TAB PO SCH (22:05)
[2021-03-23] MEDS: Mometasone/Formoterol 200/5 60 PUFF INH SCH ×2 (10:35→20:23)
[2021-03-23] MEDS: Losartan 25 MG TAB PO SCH (10:36)
[2021-03-23] MEDS: Atenolol 50 MG TAB PO SCH (10:36)
[2021-03-23] MEDS: Cyanocobalamin (Vitamin B-12) 1,000 MCG TAB PO SCH (10:36)
[2021-03-23] MEDS: Docusate 100 MG CAP PO SCH (10:36)
[2021-03-23] MEDS: Potassium Chloride 20 MEQ TAB PO SCH (10:36)
[2021-03-23] MEDS: Megestrol Acetate 40 MG TAB PO SCH ×2 (10:37→20:23)
[2021-03-23] MEDS: Folic Acid 1 MG TAB PO SCH (10:37)
[2021-03-23] MEDS: Ferrous Gluconate 324 MG TAB PO SCH ×2 (10:38→20:23)
[2021-03-23] MEDS: Enoxaparin Sodium 30 MG/0.3 ML SYRINGE SC SCH (10:38)
[2021-03-23] MEDS ORDERED: Proctozone-HC 30 GM TUBE PR PRN (14:39)
[2021-03-23] MEDS ORDERED: Acetaminophen 325 MG TAB PO PRN (14:44)
[2021-03-23] MEDS: Aspirin Chewable 81 MG TAB PO SCH (20:23)
[2021-03-23] MEDS: Atorvastatin Calcium 10 MG TAB PO SCH (20:23)
[2021-03-24] MEDS: Potassium Chloride 20 MEQ TAB PO SCH (09:31)
[2021-03-24] MEDS: Mometasone/Formoterol 200/5 60 PUFF INH SCH ×2 (09:31→21:05)
[2021-03-24] MEDS: Megestrol Acetate 40 MG TAB PO SCH ×2 (09:33→21:04)
[2021-03-24] MEDS: Folic Acid 1 MG TAB PO SCH (09:33)
[2021-03-24] MEDS: Atenolol 50 MG TAB PO SCH (09:34)
[2021-03-24] MEDS: Enoxaparin Sodium 30 MG/0.3 ML SYRINGE SC SCH (09:34)
[2021-03-24] MEDS: Losartan 25 MG TAB PO SCH (09:34)
[2021-03-24] MEDS: Ferrous Gluconate 324 MG TAB PO SCH ×2 (09:34→21:04)
[2021-03-24] MEDS: Cyanocobalamin (Vitamin B-12) 1,000 MCG TAB PO SCH (09:35)
[2021-03-24] MEDS: Docusate 100 MG CAP PO SCH (09:35)
[2021-03-24] MEDS: Aspirin Chewable 81 MG TAB PO SCH (21:03)
[2021-03-24] MEDS: Atorvastatin Calcium 10 MG TAB PO SCH (21:04)
[2021-03-25 06:33] VITALS: TEMP 98.7
[2021-03-25] MEDS: Mometasone/Formoterol 200/5 60 PUFF INH SCH (09:08)
[2021-03-25] MEDS: Enoxaparin Sodium 30 MG/0.3 ML SYRINGE SC SCH (09:09)
[2021-03-25] MEDS: Atenolol 50 MG TAB PO SCH (09:10)
[2021-03-25] MEDS: Losartan 25 MG TAB PO SCH (09:10)
[2021-03-25] MEDS: Potassium Chloride 20 MEQ TAB PO SCH (09:11)
[2021-03-25] MEDS: Cyanocobalamin (Vitamin B-12) 1,000 MCG TAB PO SCH (09:12)
[2021-03-25] MEDS: Docusate 100 MG CAP PO SCH (09:12)
[2021-03-25] MEDS: Megestrol Acetate 40 MG TAB PO SCH (09:12)
[2021-03-25] MEDS: Folic Acid 1 MG TAB PO SCH (09:12)
[2021-03-25] MEDS: Ferrous Gluconate 324 MG TAB PO SCH (09:15)
[2021-03-25 09:16] VITALS: BP 116/76
== END 2021-03-25 15:30 | disposition home health service (06) | DRG 640 ==
LOC: BURMED 19:00
PROVIDERS: ADMIT Family Medicine; ATTEND Family Medicine
DX: E86.0 Dehydration (principal); J18.9 Pneumonia, unspecified organism; E44.0 Moderate protein-calorie malnutrition; Z68.1 Body mass index [BMI] 19.9 or less, adult; R53.1 Weakness; E87.2 Acidosis; R09.02 Hypoxemia; I10 Essential (primary) hypertension; E78.5 Hyperlipidemia, unspecified; J44.9 Chronic obstructive pulmonary disease, unspecified; Z86.16 Personal history of COVID-19
CPT/HCPCS: 36415; 71046; 80048; 80053; 81001; 85025; 87040; 94640; 94664; J0696; J1650; J1956; J3490; J7050; J7512; J7620; J8540; S0179

== ENCOUNTER 2021-08-02 09:14 | Emergency (ER) | payer MEDICARE, OTHER ==
[2021-08-02] MEDS ORDERED: traMADol HCl 50 MG TAB ONE (09:45)
[2021-08-02] MEDS ORDERED: predniSONE 20 MG TAB ONE (09:45)
== END 2021-08-02 09:54 | disposition home or self-care (01) ==
LOC: BURERS 09:14
DX: M54.50 Low back pain, unspecified (principal); I10 Essential (primary) hypertension; E78.5 Hyperlipidemia, unspecified
CPT/HCPCS: 99283; J7512

== ENCOUNTER 2021-12-06 10:27 | Emergency (ER) | payer MEDICARE, OTHER | END 2021-12-06 13:01 | disposition home or self-care (01) | LOC: BURERS 10:27 | DX: R07.89 Other chest pain (principal); I10 Essential (primary) hypertension; E78.5 Hyperlipidemia, unspecified; W18.30XA Fall on same level, unspecified, initial encounter; Y92.009 Unspecified place in unspecified non-institutional (private) residence as the place of occurrence of the external cause; Z85.46 Personal history of malignant neoplasm of prostate | CPT/HCPCS: 99283 ==